=== PATIENT | female | born 1975 | race Caucasian/White ===

== ENCOUNTER 2024-08-10 20:18 | Observation (INO) ==
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
[2024-08-10] MEDS: KETOROLAC TROMETHAMINE 15 MG/ML VIAL IV STA (21:05)
[2024-08-10] MEDS: methylPREDNISolone 125 MG/2 ML VIAL IV STA (21:05)
[2024-08-10] MEDS: LIDOCAINE 5% 1 PATCH TD STA (21:05)
[2024-08-10] MEDS: ACETAMINOPHEN 500 MG TAB PO STA (21:06)
[2024-08-10] MEDS: MoRPHine SULFATE 4 MG/ML 1 ML CARP\\VIAL IV STA (21:06)
[2024-08-10 21:53] LABS: Basophils # (auto) 0.04 K/uL (0.00-0.20); Basophils % (auto) 0.4 %; Eosinophils # (auto) 0.05 K/uL (0.00-0.50); Eosinophils % (auto) 0.5 %; Hematocrit (blood only) 43.5 % (37.0-47.0); Hemoglobin 14.1 g/dl (12.0-16.0); Immature Granulocytes # (auto) 0.04 K/uL (0.01-0.20); Immature Granulocytes % (auto) 0.4 %; Mean Corpuscular Hemoglobin 26.3 pg (25.0-34.0); Mean Corpuscular Hgb Conc 32.4 g/dL (32.0-36.0); Mean Corpuscular Volume 81.2 fL (80.0-100.0); Mean Platelet Volume 10.5 fL (9.4-12.4); Monocytes # (auto) 0.63 K/uL (0.11-0.59); Monocytes % (auto) 6.3 %; Neutrophils # (auto) 8.67 K/uL (1.40-6.50); Neutrophils % (auto) 86.4 %; Platelet Count 360 K/uL (130-400); RDW Coefficient of Variation 15.5 % (11.5-14.5); RDW Standard Deviation 44.8 fL (36.4-46.3); Red Blood Count 5.36 M/uL (4.20-5.40); White Blood Count 10.03 K/ul (4.8-10.8)
[2024-08-10 22:10] LABS: Alanine Aminotransferase 5 U/L (7-52); Albumin Globulin Ratio 1.1 (0.9-2); Albumin Level 3.6 gm/dl (3.4-5.0); Alkaline Phosphatase 71 U/L (34-104); Anion Gap 10 (3-11); Aspartate Aminotransferase 10 U/L (13-39); BUN Creatinine Ratio 17.4 (10-20); Bilirubin,Total 0.8 mg/dl (0.2-1.0); Blood Urea Nitrogen 15 mg/dl (6-23); Calcium 9.3 mg/dl (8.6-10.3); Carbon Dioxide 23 mmol/L (21-32); Chloride 106 mmol/L (98-107); Globulin 3.4 gm/dl (2.5-4.0); Glucose 181 mg/dl (70-99(Fasting)); Potassium 3.3 mmol/L (3.5-5.1); Sodium 139 mmol/L (136-145)
--- NOTE | 2024-08-11 00:17 | CT Scan Report ---
Exam(s): CT L SPINE EXAM: CT Lumbar Spine Without Intravenous Contrast CLINICAL HISTORY: Back Pain. TECHNIQUE: Axial computed tomography images of the lumbar spine without intravenous contrast. CTDI is 39 mGy and DLP is 1143 mGy-cm. Automated exposure control was utilized for the study. A dose lowering technique was utilized adhering to the principles of ALARA. COMPARISON: X-ray lumbar spine 06/02/2024, CT abdomen pelvis 04/24/2024. FINDINGS: Interval development of destruction of the inferior endplate of L3 and superior endplate of L4 with mixed sclerosis and circumferential soft tissue including up to 11 mm of anterior extrusion and 11 mm of posterior extension into the spinal canal at the L3-4 disc level. There is overall partial loss of height of the L3 and L4 vertebral bodies. There is associated severe canal stenosis at L3-4 and moderate bilateral L3-4 neural foraminal stenosis. Appearance is consistent with acute discitis/osteomyelitis with involvement of the spinal canal and paraspinal abscess. No other lytic or blastic lesions identified. Bone mineralization is otherwise within normal limits. Maintenance of height of the remainder of the vertebral bodies. No spondylolisthesis. Degenerative changes greatest at T12-L1, unchanged. Schmorl's nodes inferior endplate of L4, unchanged. Mild posterior disc bulges and facet hypertrophic changes at L4-5 and L5-S1. Vascular calcifications. Redemonstrated partially visualized left upper quadrant presumed splenic cystic lesion and metal artifact from embolic material in left upper quadrant. IMPRESSION: Interval development of acute discitis/osteomyelitis at L3-4 with circumferential extension of the abscess including severe stenosis of the spinal canal at L3-4 and 12 involvement of the neuroforamina. Recommend correlation with contrast enhanced MRI when clinically appropriate. Communications: Call Doctor Epidural/Spinal Infection Electronically signed by: Simon Chicas M.D. 08/11/24 00:16 AM
[2024-08-11] MEDS ORDERED: VANCOMYCIN CONSULT ACTIVE PRN (00:28)
[2024-08-11 01:05] LABS: C Reactive Protein 1.66 mg/dl (0-0.5)
[2024-08-11] MEDS: VANCOMYCIN HCL 2,500 MG in SODIUM CHLORIDE 0.9% 500 ML IV ONE (01:32)
[2024-08-11] MEDS: PIPERACILLIN/TAZOBACTAM 4.5 GM/100 ML BAG IV ONE (01:32)
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
[2024-08-11] MEDS ORDERED: HYDROmorphone INJ 0.5 MG/0.5 ML SYR IV PRN (02:21)
[2024-08-11] MEDS: SODIUM CHLORIDE 0.9% 1,000 ML IV SCH (02:58)
[2024-08-11 07:54] LABS: Basophils # (auto) 0.01 K/uL (0.00-0.20); Basophils % (auto) 0.2 %; Hematocrit (blood only) 40.9 % (37.0-47.0); Hemoglobin 13.3 g/dl (12.0-16.0); Immature Granulocytes # (auto) 0.01 K/uL (0.01-0.20); Immature Granulocytes % (auto) 0.2 %; Lymphocytes # (auto) 0.41 K/uL (1.20-3.40); Lymphocytes % (auto) 9.5 %; Mean Corpuscular Hemoglobin 26.4 pg (25.0-34.0); Mean Corpuscular Hgb Conc 32.5 g/dL (32.0-36.0); Mean Corpuscular Volume 81.2 fL (80.0-100.0); Mean Platelet Volume 10.3 fL (9.4-12.4); Monocytes # (auto) 0.08 K/uL (0.11-0.59); Monocytes % (auto) 1.8 %; Neutrophils # (auto) 3.82 K/uL (1.40-6.50); Neutrophils % (auto) 88.3 %; Platelet Count 305 K/uL (130-400); RDW Coefficient of Variation 15.3 % (11.5-14.5); RDW Standard Deviation 44.5 fL (36.4-46.3); Red Blood Count 5.04 M/uL (4.20-5.40); White Blood Count 4.33 K/ul (4.8-10.8)
[2024-08-11] MEDS: hydrALAZINE HCL 20 MG/ML VIAL IV PRN (07:55)
[2024-08-11 08:06] LABS: BUN Creatinine Ratio 21.7 (10-20); Calcium 9.6 mg/dl (8.6-10.3); Creatinine Clr Calc Pharmacy 96.2 ml/min; Potassium 4.1 mmol/L (3.5-5.1)
[2024-08-11] MEDS: lisinopril 10 MG TAB PO SCH (08:38)
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
[2024-08-11 15:34] VITALS: RESP 18
[2024-08-11] MEDS: DONEPEZIL HCL 5 MG TAB PO SCH (19:40)
[2024-08-11] MEDS: HYDROmorphone INJ 0.5 MG/0.5 ML SYR IV PRN (19:46)
[2024-08-11 19:53] VITALS: BP 195/121; PULSE 60; TEMP 97.5; O2SAT 98
[2024-08-11] MEDS: hydrALAZINE HCL 20 MG/ML VIAL IV STA (19:59)
== END 2024-08-11 20:36 | disposition short-term general hospital (02) | DRG 541 ==
LOC: ED 20:18 → INTOOBSV 08-11 01:18 → 3N 08-11 01:18 → SUATTDRO 08-11 01:18 → 3N 08-11 01:49

== ENCOUNTER 2025-08-18 00:34 | Observation (INO) ==
--- NOTE | 2025-08-18 00:39 | Emergency Department Note ---
ED Provider Note CHIEF COMPLAINT: [] HISTORY OF PRESENTING ILLNESS: [] REVIEW OF SYSTEMS: See HPI for pertinent positives and pertinent negatives. ALLERGIES: See below MEDICATIONS: See below PAST MEDICAL HISTORY: See below PHYSICAL EXAM: [] DIFFERENTIAL DIAGNOSIS: [] ED COURSE AND MEDICAL DECISION MAKING: HISTORY FROM INDEPENDENT HISTORIAN: [] MEDICATIONS GIVEN: [] MONITOR: Continuous diagnostic cardiac sonographer: Order was placed for continuous diagnostic cardiac sonographer. Patient was placed on the diagnostic cardiac sonographer and continuous pulse ox. Patient was noted to be in normal sinus rhythm at an initial rate of [] bpm per my interpretation. EKG: EKG was interpreted by myself as []. INTERPRETATION OF LABS: I interpreted the labs with full lab results as below in the lab section of this note. Pertinent lab results discussed in the MDM section below. INTERPRETATION OF IMAGING: Imaging studies were interpreted by myself and read by radiology as per the imaging section of this note. EXTERNAL RECORDS REVIEWED: [] CHRONIC MEDICAL/SOCIAL CONDITIONS AFFECTING CARE: [] ESCALATION OF CARE CONSIDERED: [] CONSULTATIONS: [] PROCEDURES: [] MDM SUMMARY: The patient is a pleasant, [] who arrives to the emergency department for evaluation of the above-stated complaint. []. DIAGNOSIS: [] The chart was completed utilizing [employer] Speech voice recognition software. Grammatical errors, random word insertions, pronoun errors, and incomplete sentences are an occasional consequence of this system due to software limitations, ambient noise, and hardware issues. Any formal questions or concerns about the content, text, or information contained within the body of this dictation should be directly addressed to the provider for clarification. TREATMENT PLAN/DISCHARGE INSTRUCTIONS: [] Past Med/Surg History Problem List (Updated 01/23/25 @ 00:06 by [facility] Daemon) Severe low back pain Discitis of lumbar region (Acute) Acute hyperglycemia (Acute) Acute hypokalemia (Acute) Acute osteomyelitis of lumbar spine (Acute) Medical History Dementia Hypertension Surgical History No significant past surgical history Social History Smoking Status: Current every day smoker Tobacco Type: Cigarettes Cigarettes Per Day: 3-4; Second Hand Exposure: No; Do You Dip or Chew Tobacco: No; Hx Alcohol Use: No Hx Substance Use: Yes (history heroin abuse, denies current use) Preferred Language: South Sudanese Communication Ability: Effective Sheeter Machine Operator Required: No Beliefs That Will Affect Care: None Current Living Situation: Family Current Living Situation Comment: lives with son who assists with all ADLs Feels Safe at Home: Yes Assistive Devices: Cane, Scooter/Electric Scooter, Stair Lift and Walker Allergies Allergies Allergy/AdvReac Type Severity Reaction Status Date / Time No Known Allergies Allergy Verified 04/23/24 21:50 Home Meds Home Medications Medication Instructions Recorded Confirmed aspirin 81 mg tablet,delayed 81 mg PO DAILY 08/11/24 01/08/25 release donepezil 5 mg tablet 5 mg PO HS 08/11/24 01/08/25 lisinopril 40 mg tablet 40 mg PO DAILY 01/08/25 01/08/25 Discharge Plan Visit Data Chief Complaint: Cardiac Assessment Stated Complaint: CHEST PAIN X ALL DAY, NON RADIATING ED Provider: Paul Valentin ED Midlevel Provider: [facility] Forms Stand Alone Forms: My [facility] Prescriptions Prescriptions: No Action donepezil 5 mg tablet 5 mg PO HS aspirin 81 mg tablet,delayed release (DR/EC) 81 mg PO DAILY lisinopril 40 mg tablet 40 mg PO DAILY Referrals Referrals: Ray Almeida MD [Primary Care Provider] -
[2025-08-18 01:02] LABS: Hematocrit (blood only) 43.3 % (37.0-47.0); Hemoglobin 14.9 g/dL (12.0-16.0); Immature Granulocytes # (auto) 0.01 K/uL (0.01-0.20); Immature Granulocytes % (auto) 0.1 %; Mean Corpuscular Hemoglobin 30.0 pg (25.0-34.0); Mean Corpuscular Volume 87.1 fL (80.0-100.0); Platelet Count 240 K/uL (130-400); RDW Standard Deviation 40.9 fL (36.4-46.3); Red Blood Count 4.97 M/uL (4.20-5.40); White Blood Count 6.75 K/ul (4.8-10.8)
[2025-08-18 01:18] LABS: Alanine Aminotransferase 5.0 U/L (7-52); Albumin Globulin Ratio 1.1 (0.9-2); Albumin Level 4.0 gm/dl (3.4-5.0); Alkaline Phosphatase 71.0 U/L (34-104); Anion Gap 8.0 (3-11); Bilirubin,Total 0.7 mg/dl (0.2-1.0); Blood Urea Nitrogen 21.0 mg/dl (6-23); Calcium 9.4 mg/dl (8.6-10.3); Carbon Dioxide 26.0 mmol/L (21-32); Chloride 103.0 mmol/L (98-107); Creatinine Clr Calc Pharmacy 96.3 ml/min; Globulin 3.6 gm/dl (2.5-4.0); Glucose 104.0 mg/dl (70-99(Fasting)); Lipase 15.0 U/L (11-82); Potassium 3.8 mmol/L (3.5-5.1); Sodium 137.0 mmol/L (136-145); Total Protein 7.6 gm/dl (6.0-8.3)
--- NOTE | 2025-08-18 02:05 | XRay Report ---
EXAM: XR chest 1V portable CLINICAL HISTORY: Chest pain, nonspecific TECHNIQUE: Radiograph of chest was acquired. 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 The lungs are clear and well-expanded with no pulmonary infiltrate or pleural effusion. The cardiomediastinal silhouette is within normal limits. No acute osseous abnormality. IMPRESSION: 1. Prominent central bronchovascular markings. 2. No acute cardiopulmonary disease. 3. Decreased size of left hilum. Electronically signed by Kumar Curiel 08-18-2025 02:04 AM
[2025-08-18] MEDS: OPTIRAY 320 125ml IV ONE (02:59)
--- NOTE | 2025-08-18 03:43 | CT Scan Report ---
EXAM: CT angio chest dissec wo/w con CLINICAL HISTORY: chest pain TECHNIQUE: Contiguous axial images were obtained from the neck base through the upper abdomen without and with intravenous administration of iodinated contrast material. Angiographic images were processed, 3D MIP images were acquired for interpretation. If IV contrast material had not been administered, the likelihood of detecting abnormalities relevant to the patient's condition would have been substantially decreased. Coronal and sagittal 3-D MIPs were likewise performed and indicated to increase the sensitivity of detectin diffuse clinically relevant pathology. CT scan was performed according to ALARA (as low as reasonably achievable). 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 FINDINGS: Few atelectatic bands are noted involving bilateral lung bases. Mild dilatation of pulmonary trunk ,bilateral main pulmonary artery up to subsegmental level with mild tortuosity - suggest possibility of pulmonary arterial hypertension Adequate contrast bolus without evidence of pulmonary embolism. Few subcentimeter sized to mildly prominent pre and paratracheal lymph nodes are seen. The central airways are patent. No pleural effusion. The heart, aorta, and pulmonary arteries are of normal size and configuration. There are coronary artery and aortic atherosclerotic calcifications. No pericardial effusion is identified. The thyroid is unremarkable. No suspicious lytic or sclerotic osseous lesions are identified. Approximately 14 x 13 cm sized thick walled cystic lesion with patchy curvilinear wall calcifications are noted arising from the spleen- clinical correlation suggested. IMPRESSION: Few atelectatic bands are noted involving bilateral lung bases.-stable. Mild dilatation of pulmonary trunk ,bilateral main pulmonary artery up to subsegmental level with mild tortuosity - suggest possibility of pulmonary arterial hypertension-stable. No obvious pulmonary embolism. No obvious aortic dissection/aneurysm. Few subcentimeter sized to mildly prominent pre and paratracheal lymph nodes are seen.-stable. Electronically signed by Kumar Curiel 08-18-2025 03:42 AM
--- NOTE | 2025-08-18 04:03 | History & Physical Report ---
Date of Service August 18, 2025 Assessment & Plan (1) Chest pain: Plan: Assessment and plan below following discussion of case with ED provider and reviewing patient history/pertinent normal/abnormal diagnostic test results. Chest pain Secondary to uncontrolled hypertension Troponin elevation secondary to hypertensive crisis Moderate MR dementia, patient mentating well history of epidural abscess/lumbar osteomyelitis status post antibiotic Rx history of substance abuse ongoing tobacco abuse OBS Admit to PCU Add amlodipine to lisinopril Trend troponin, TTE for progression Check UDS Nicotine patch as needed DVT prophylaxis. Lovenox subcu Full code Text document was generated using [employer] voice recognition software. It may contain grammatical or spelling errors. Kindly contact undersigned for clarification of any documentation item in question. History of Present Illness Chief Complaint: Chest pain Primary Care Provider: Dr. Coleman History obtained from patient and records. Medical history significant for hypertension, moderate MR, GERD, dementia, history of epidural abscess/lumbar osteomyelitis status post antibiotic Rx, history of substance abuse, ongoing tobacco abuse. Last confinement July 2024 for acute lumbar discitis/osteomyelitis with abscess. Patient transferred to [facility]. IR bone biopsy done. No growth on cultures. Patient discharged on outpatient cefepime course as per ID recommendations. Patient had midsternal chest pain worsening since yesterday. No cough or SOB symptoms. No headache. No abdominal pain. Compliant with home medications. Denies unusual stress. EMS called to patient's home. SBP noted to be 200s which is usual for her. No relief with aspirin and nitroglycerin administration prior to ED transport. Patient currently comfortable. 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 [place], lives with son Allergies Allergy/AdvReac Type Severity Reaction Status Date / Time No Known Allergies Allergy Verified 08/18/25 00:52 Home Medications Medication Instructions Recorded Confirmed Type aspirin 81 mg tablet,delayed 81 mg PO DAILY 08/11/24 08/18/25 History release donepezil 5 mg tablet 5 mg PO HS 08/11/24 08/18/25 History lisinopril 40 mg tablet 40 mg PO DAILY 01/08/25 08/18/25 History Past Med/Surg History Problem List (Updated 08/18/25 @ 06:26 by Joseph Ovalle MD) Chest pain Severe low back pain Discitis of lumbar region (Acute) Acute hyperglycemia (Acute) Acute hypokalemia (Acute) Acute osteomyelitis of lumbar spine (Acute) Medical History Dementia Hypertension Surgical History No significant past surgical history Social History Smoking Status: Current every day smoker Tobacco Type: Cigarettes Cigarettes Per Day: 3-4; Second Hand Exposure: No; Do You Dip or Chew Tobacco: No; Hx Alcohol Use: Yes Alcohol type: hard liquor Hx Substance Use: Yes Last Used Substance: Unknown Preferred Language: Portuguese Communication Ability: Effective Toe Former Required: No Beliefs That Will Affect Care: None Current Living Situation: Family Current Living Situation Comment: lives with son who assists with all ADLs Feels Safe at Home: Yes Safety Concerns: Feels Safe At This Time Assistive Devices: Cane, Denture - Upper, Walker and Wheelchair Review of Systems Review of Systems: As per HPI, all other systems reviewed and negative Physical Exam Physical Exam: GENERAL: Comfortable, pleasant, obese, looks older than stated age, no respiratory distress SKIN: Normal color, warm HEENT: Porum palpebral conjunctivae, no ptosis, moist buccal mucosa NECK : Supple, no tenderness CHEST : CTA, no tenderness HEART : RRR, systolic murmur ABDOMEN: Some distention, nontender EXTREMITIES : No LE swelling/tenderness, palpable pulses, no other conspicuous deformities noted NEUROLOGIC : Coherent, no facial asymmetry, no other gross focality Results & Data Results & Data Vital Signs (Past 12 Hours) Vital Signs Temp Pulse Resp BP Pulse Ox O2 Del Method 08/18/25 03:09 59 L 12 174/116 H 92 08/18/25 02:30 57 L 18 173/104 H 95 08/18/25 02:00 60 20 171/101 H 97 08/18/25 01:30 57 L 18 161/96 H 94 08/18/25 01:00 62 16 165/106 H 97 08/18/25 00:48 71 08/18/25 00:39 37.3 C 74 18 197/119 H 100 Room Air Laboratory Results Laboratory Results WBC 6.75 K/ul (4.8-10.8) 08/18/25 00:39 RBC 4.97 M/uL (4.20-5.40) 08/18/25 00:39 Hgb 14.9 g/dL (12.0-16.0) 08/18/25 00:39 Hct 43.3 % (37.0-47.0) 08/18/25 00:39 MCV 87.1 fL (80.0-100.0) 08/18/25 00:39 MCH 30.0 pg (25.0-34.0) 08/18/25 00:39 MCHC 34.4 g/dL (32.0-36.0) 08/18/25 00:39 RDW Std Deviation 40.9 fL (36.4-46.3) 08/18/25 00:39 RDW Coeff of Naveed 12.8 % (11.5-14.5) 08/18/25 00:39 Plt Count 240 K/uL (130-400) 08/18/25 00:39 MPV 10.1 fL (9.4-12.4) 08/18/25 00:39 Immature Gran % (Auto) 0.1 % 08/18/25 00:39 Neut % (Auto) 72.1 % 08/18/25 00:39 Lymph % (Auto) 17.0 % 08/18/25 00:39 [place] % (Auto) 8.7 % 08/18/25 00:39 Eos % (Auto) 1.5 % 08/18/25 00:39 Baso % (Auto) 0.6 % 08/18/25 00:39 Neut # (Auto) 4.86 K/uL (1.40-6.50) 08/18/25 00:39 Lymph # (Auto) 1.15 K/uL (1.20-3.40) L 08/18/25 00:39 [place] # (Auto) 0.59 K/uL (0.11-0.59) 08/18/25 00:39 Eos # (Auto) 0.10 K/uL (0.00-0.50) 08/18/25 00:39 Baso # (Auto) 0.04 K/uL (0.00-0.20) 08/18/25 00:39 Immature Gran # (Auto) 0.01 K/uL (0.01-0.20) 08/18/25 00:39 Sodium 137 mmol/L (136-145) 08/18/25 00:39 Potassium 3.8 mmol/L (3.5-5.1) 08/18/25 00:39 Chloride 103 mmol/L (98-107) 08/18/25 00:39 Carbon Dioxide 26 mmol/L (21-32) 08/18/25 00:39 Anion Gap 8 (3-11) 08/18/25 00:39 BUN 21 mg/dl (6-23) 08/18/25 00:39 Creatinine 0.80 mg/dl (0.6-1.2) 08/18/25 00:39 Est Cr Clr Drug Dosing 96.3 ml/min 08/18/25 00:39 eGFR 89.15 08/18/25 00:39 BUN/Creatinine Ratio 26.3 (10-20) H 08/18/25 00:39 Glucose 104 mg/dl (70-99(Fasting)) H 08/18/25 00:39 Calcium 9.4 mg/dl (8.6-10.3) 08/18/25 00:39 Total Bilirubin 0.7 mg/dl (0.2-1.0) 08/18/25 00:39 AST 11 U/L (13-39) L 08/18/25 00:39 ALT 5 U/L (7-52) L 08/18/25 00:39 Alkaline Phosphatase 71 U/L (34-104) 08/18/25 00:39 Troponin I High Sens 62.1 pg/ml (0-14) H* D 08/18/25 02:26 Total Protein 7.6 gm/dl (6.0-8.3) 08/18/25 00:39 Albumin 4.0 gm/dl (3.4-5.0) 08/18/25 00:39 Globulin 3.6 gm/dl (2.5-4.0) 08/18/25 00:39 Albumin/Globulin Ratio 1.1 (0.9-2) 08/18/25 00:39 Lipase 15 U/L (11-82) 08/18/25 00:39 Impressions Chest X-Ray 08/18/25 00:39 EXAM: XR chest 1V portable CLINICAL HISTORY: Chest pain, nonspecific TECHNIQUE: Radiograph of chest was acquired. COMPARISON: CR, 01/08/2025 02:18:01 BINDING CUTTER SYNTHETIC CLOTH FINDINGS: Prominent central bronchovascular markings. The lungs are clear and well-expanded with no pulmonary infiltrate or pleural effusion. The cardiomediastinal silhouette is within normal limits. No acute osseous abnormality. IMPRESSION: 1. Prominent central bronchovascular markings. 2. No acute cardiopulmonary disease. 3. Decreased size of left hilum. Electronically signed by Kumar Curiel 08-18-2025 02:04 AM Chest CTA 08/18/25 02:04 EXAM: CT angio chest dissec wo/w con CLINICAL HISTORY: chest pain TECHNIQUE: Contiguous axial images were obtained from the neck base through the upper abdomen without and with intravenous administration of iodinated contrast material. Angiographic images were processed, 3D MIP images were acquired for interpretation. If IV contrast material had not been administered, the likelihood of detecting abnormalities relevant to the patient's condition would have been substantially decreased. Coronal and sagittal 3-D MIPs were likewise performed and indicated to increase the sensitivity of detectin diffuse clinically relevant pathology. CT scan was performed according to ALARA (as low as reasonably achievable). 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 FINDINGS: Few atelectatic bands are noted involving bilateral lung bases. Mild dilatation of pulmonary trunk ,bilateral main pulmonary artery up to subsegmental level with mild tortuosity - suggest possibility of pulmonary arterial hypertension Adequate contrast bolus without evidence of pulmonary embolism. Few subcentimeter sized to mildly prominent pre and paratracheal lymph nodes are seen. The central airways are patent. No pleural effusion. The heart, aorta, and pulmonary arteries are of normal size and configuration. There are coronary artery and aortic atherosclerotic calcifications. No pericardial effusion is identified. The thyroid is unremarkable. No suspicious lytic or sclerotic osseous lesions are identified. Approximately 14 x 13 cm sized thick walled cystic lesion with patchy curvilinear wall calcifications are noted arising from the spleen- clinical correlation suggested. IMPRESSION: Few atelectatic bands are noted involving bilateral lung bases.-stable. Mild dilatation of pulmonary trunk ,bilateral main pulmonary artery up to subsegmental level with mild tortuosity - suggest possibility of pulmonary arterial hypertension-stable. No obvious pulmonary embolism. No obvious aortic dissection/aneurysm. Few subcentimeter sized to mildly prominent pre and paratracheal lymph nodes are seen.-stable. Electronically signed by Kumar Curiel 08-18-2025 03:42 AM Diagnostic Findings EKG as per my interpretation :Rate 60, NSR, LAD, LAFB, LVH, no ischemia
[2025-08-18 04:11] LABS: Partial Thromboplastin Time 32 Seconds (21-31)
[2025-08-18 04:16] LABS: Magnesium 1.9 mg/dl (1.7-2.4)
[2025-08-18] MEDS ORDERED: PROMETHAZINE 6.25 MG/50.25 ML BAG IV PRN (04:43)
[2025-08-18] MEDS ORDERED: MoRPHine SULFATE 4 MG/ML 1 ML CARP\\VIAL IV PRN (04:44)
[2025-08-18] MEDS ORDERED: ACETAMINOPHEN 325 MG TAB PO PRN (04:44)
[2025-08-18] MEDS: ACETAMINOPHEN 1,000 MG/100 ML VIAL IV STA (04:46)
[2025-08-18 05:28] VITALS: TEMP 98.1
[2025-08-18] MEDS: SODIUM CHLORIDE 0.9% 1,000 ML IV ONE (05:28)
[2025-08-18 08:07] VITALS: RESP 18; O2SAT 95
[2025-08-18] MEDS: ENOXAPARIN INJ 40 MG/0.4 ML SYR SQ SCH (08:13)
[2025-08-18] MEDS: ASPIRIN 81 MG ECTAB PO SCH (08:13)
[2025-08-18 09:21] LABS: Appearance Urine Clear (Clear); Glucose Urine UA Negative (Negative)
[2025-08-18 09:56] LABS: Amphetamines+Metham, Urine Neg (Neg); MDMA (Ecstacy), Urine Neg (Neg); Marijuana, Urine Neg (Neg)
--- NOTE | 2025-08-18 10:02 | Electrocardiogram Report ---
Test Reason : Blood Pressure : */* mmHG Vent. Rate : 63 BPM Atrial Rate : 63 BPM P-R Int : 134 ms QRS Dur : 84 ms QT Int : 414 ms P-R-T Axes : 23 -15 -18 degrees QTcB Int : 423 ms Normal sinus rhythm with sinus arrhythmia Left ventricular hypertrophy with repolarization abnormality ( R in aVL ) Abnormal ECG When compared with ECG of 08-Jan-2025 02:12, T wave inversion now evident in Inferior leads QT has shortened Confirmed by Bienvenido Carroll ([id number]) on 08/18/2025 10:02:11 AM Referred By: REFERRED SELF Confirmed By: Bienvenido Carroll
[2025-08-18 11:52] VITALS: BP 149/82
--- NOTE | 2025-08-18 13:48 | Discharge Summary ---
Discharge Summary Date of Service August 18, 2025 Principal Dx & Hospital Course #1 = Principal Diagnosis (1) Uncontrolled hypertension: (2) Demand ischemia of myocardium: (3) Nicotine addiction: Plan Patient 49-year-old female presented with some chest pain. Also noted to have an elevated troponin and uncontrolled hypertension. Patient was admitted to the hospital. There is no significant EKG changes. Troponins were trended and were consistent with demand ischemia due to her uncontrolled hypertension. Amlodipine was added to her regimen. She had a good response. All of her symptoms resolved. Troponins trended down. Other laboratory studies were stable. Patient was encouraged to stop smoking. She will be discharged home to follow-up with her PCP for ongoing titration of blood pressure medications and outpatient cardiology evaluation. Notes For Next Care Provider Consider outpatient cardiology evaluation for ischemia Medication Changes From Visit Amlodipine Admission HPI Per Admitting Provider History obtained from patient and records. Medical history significant for hypertension, moderate MR, GERD, dementia, history of epidural abscess/lumbar osteomyelitis status post antibiotic Rx, history of substance abuse, ongoing tobacco abuse. Last confinement July 2024 for acute lumbar discitis/osteomyelitis with abscess. Patient transferred to [facility] [place]. IR bone biopsy done. No growth on cultures. Patient discharged on outpatient cefepime course as per ID recommendations. Patient had midsternal chest pain worsening since yesterday. No cough or SOB symptoms. No headache. No abdominal pain. Compliant with home medications. Denies unusual stress. EMS called to patient's home. SBP noted to be 200s which is usual for her. No relief with aspirin and nitroglycerin administration prior to ED transport. Patient currently comfortable. 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 Lungs: Clear to auscultation, decreased, no wheezes rales or rhonchi CV: S1-S2, regular Abdomen: Soft, nontender, nondistended Extremities: No significant edema Neuro: No focal deficits Psych: Cooperative, normal mood Updated Medication List Medication Instructions Recorded Confirmed Type aspirin 81 mg tablet,delayed 81 mg PO DAILY 08/11/24 08/18/25 History release donepezil 5 mg tablet 5 mg PO HS 08/11/24 08/18/25 History lisinopril 40 mg tablet 40 mg PO DAILY 01/08/25 08/18/25 History amlodipine 10 mg tablet 10 mg PO DAILY #30 tabs 08/18/25 Rx Hospital Stay Data Consultations 08/18/25 03:48 ED Decision to Admit Stat Diagnostic Imagining Performed 08/18/25 02:04 CT angio chest dissec wo/w con Stat Reviewed imaging, laboratory and diagnostic studies. Pertinent findings as below. CBC within normal range Electrolytes within normal range Creatinine 0.80 Troponin 62-95-69 Urinalysis unremarkable Urine drug screen unremarkable CTA of the chest negative for pulmonary embolism, mild dilatation of pulmonary trunk, no aortic dissection Pending Results Patient Have Any Pending Studies at Discharge: No Discharge Instructions Given to Patient (Per Discharging Provider) Strongly recommend you stop smoking Follow-up with your PCP for ongoing titration of blood pressure medications. Coordinating outpatient cardiology evaluation Total Time Total Time Spent Total Time Spent (In Minutes): 32
[2025-08-18] MEDS: DONEPEZIL HCL 5 MG TAB PO SCH (20:23)
[2025-08-18 20:32] VITALS: PULSE 74
[2025-08-18] MEDS: INFLUENZA VACC TS2025-26(6m+)/PF (IIV3) 0.5mL Syr IM ONE (20:36)
--- NOTE | 2025-08-20 14:44 | Electrocardiogram Report ---
Test Reason : Blood Pressure : */* mmHG Vent. Rate : 61 BPM Atrial Rate : 61 BPM P-R Int : 144 ms QRS Dur : 78 ms QT Int : 430 ms P-R-T Axes : 20 -38 17 degrees QTcB Int : 432 ms Normal sinus rhythm Left axis deviation Minimal voltage criteria for LVH, may be normal variant Septal infarct , age undetermined Abnormal ECG When compared with ECG of 18-Aug-2025 00:40, ST no longer depressed in Lateral leads T wave inversion no longer evident in Inferior leads Confirmed by Bienvenido Carroll ([id number]) on 08/20/2025 10:32:34 AM Also confirmed by Bienvenido Carroll ([id number]), copy editor Alpesh Gibbs ([id number]) on 08/20/2025 2:44:16 PM Referred By: REFERRED SELF Confirmed By: Bienvenido Carroll
== END 2025-08-18 20:44 | disposition home or self-care (01) ==
LOC: 2E 00:34 → ED 00:34 → 2E 05:00